=== PATIENT | male | born 1965 | race Caucasian/White ===

== ENCOUNTER 2023-04-09 12:13 | Outpatient (AMB) | payer BC, SELFPAY ==
--- NOTE | 2023-04-09 12:41 | A.OFFVIS_ITS ---
Intake VS Expanded 04/09/23 12:42 04/14/23 11:11 Height 5 ft 9 in 5 ft 9 in Weight 248 lb 7.375 oz 248 lb BMI 36.7 36.6 Intake Visit Reasons: DM/LVM Medication List - Last Reconciled 04/14/[address], LDN lisinopril 10 mg PO DAILY metformin 500 mg PO BID rosuvastatin (Crestor) 40 mg PO DAILY HPI Nutrition Presentation Details Pt presents for MNT for newly dx T2DM. Pt was referred by Devendra Gonzalez from [facility] Pt reports T2DM diagnosed in summer 2022, currently on metformin 500 mg /day Food frequency fish: 0-1/m fruits: 0-1/d dairy > 4 serving/d vegetables: 3serving/d starches > 30 serving/d fluids: water/tea/milk/juices Preduced 30 lbs 2-3 mo STM-Xewbtlm-Ox.Jeor Equation Height 5 ft 9 in Weight 248 lb Resting Metabolic Rate 1953.56 Calculated Activity Level Mild Activity Calories Needed to Maintain Weight 2686.15 Diagnosis Nutrition problem #1 food nutri know defi As related to (etiology) #1 diagnosis As evidenced by (sign/symptom) #1 no prior educ - nutri rec Monitoring/Goals Nutrition problem monitoring level of knowledge/skill, glucose, fasting and weight Nutrition goal/outcome list 3 CHO foods and wt loss 5lbs in 2 months Learning/Education Readiness to learn good Stages of change preparation Most Recent Diabetes Results: No Data to Display Assessment & Plan Assessment & Plan (1) T2DM (type 2 diabetes mellitus): Code(s): E11.9 - Type 2 diabetes mellitus without complications Plan: wt: 113 kg Est kcal needs as per MSJ: 2700 (40% carb, 30% protein/fat) Est fluid needs as per 25-30 ml/d: 3400 Est prot per day as per 1 g/kg bw: 113 Recommend fiber intake : 8-10 g per day and gradually increase to 25-28 g per day for women and 35-38 g for men or as tolerated Recommend sodium intake per day : less than 2000 mg Educated patient on: ( R = reviewed V = verbalizes understanding N/R = needs review N/A = not applicable * Food sources of carbohydrate, adequate serving sizes and its role in various health conditions: R * Differences between complex carbohydrates a simple carbohydrates, role of fiber in diet: R * Differences between types of fats and role in diet (mono on saturated fat fatty acids, saturated fatty acids, trans fats): NR * Food sources of sodium in salt and healthy modifications for heart health in kidney health: NR * Healthy plate method concept: R * Physical activity: Benefits a precaution: R * Hypoglycemia protocol (rule of 15): NR * Dietary prevention of Hyperglycemia: R Patient Instructions: Work on reducing portion sizes and portion sizes of carbohydrate sources of foods - reduce total carbs to 75-80 g at meal time, 0-20 g at snack Keep hydrated by having water with meals/snacks Coding Level of Care Code Nutr Indiv Intake (11365) Diagnoses T2DM (type 2 diabetes mellitus) E11.9 Time Spent (min) 30
[2023-04-09 12:42] VITALS: BMI 36.7
[2023-04-14 11:11] VITALS: BMI 36.6
== END 2023-04-09 13:20 | disposition home or self-care (01) ==
PROVIDERS: PCP Physician Assistant Medical; Visit Provider Dietitian, Registered
DX: E11.9 Type 2 diabetes mellitus without complications (principal)

== ENCOUNTER → 2023-04-09 12:13 | Outpatient (BNVA) | payer BC, SELFPAY | PROVIDERS: PCP Physician Assistant Medical; Visit Provider Dietitian, Registered | DX: E11.9 Type 2 diabetes mellitus without complications (principal); Z79.84 Long term (current) use of oral hypoglycemic drugs; Z71.3 Dietary counseling and surveillance | CPT/HCPCS: 97802 ==